=== PATIENT | female | born 1975 | race Caucasian/White ===

== ENCOUNTER 2018-12-23 20:15 | Inpatient (IN) ==
[2018-12-23] MEDS ORDERED: Sod Chloride 0.9% Inj 1,000 ML IV.SIG ONE (20:36)
[2018-12-23] MEDS ORDERED: Sod Chloride 0.9% Inj 1,000 ML IV.SIG SCH (20:45)
[2018-12-23] MEDS ORDERED: Morphine Inj 4 MG/ML Vial IV.PUSH ONE (21:49)
[2018-12-23 22:18] LABS: Baso # (Auto) 0.1 th/mm3 (0.0-0.2); Baso % (Auto) 0.4 % (0.0-2.0); Eos % (Auto) 0.1 % (0.0-4.0); Hematocrit 44.1 % (35.0-46.0); Hemoglobin 15.2 gm/dL (11.6-15.3); Lymph # (Auto) 2.7 th/mm3 (1.0-4.8); Lymph % (Auto) 19.2 % (9.0-44.0); Mean Corpuscular HGB Conc 34.4 % (32.0-36.0); Mean Corpuscular Hemoglobin 28.2 pg (27.0-34.0); Mean Corpuscular Volume 81.8 fL (80.0-100.0); Mean Platelet Volume 7.4 fL (7.0-11.0); Mono % (Auto) 6.9 % (0.0-8.0); Neut # (Auto) 10.5 th/mm3 (1.8-7.7); Neut % (Auto) 73.4 % (16.0-70.0); Platelet Count 451 th/mm3 (150-450); Red Blood Count 5.39 mil/mm3 (4.00-5.30); Red Cell Distribution Width 15.9 % (11.6-17.2); White Blood Count 14.3 th/mm3 (4.0-11.0)
[2018-12-24 02:11] LABS: Alanine Aminotransferase 125 U/L (10-53); Albumin 3.3 g/dL (3.4-5.0); Alkaline Phosphatase 136 U/L (45-117); Anion Gap 13 meq/L (5-15); Aspartate Aminotransferase 64 U/L (15-37); Blood Urea Nitrogen 18 mg/dL (7-18); Calcium 8.2 mg/dL (8.5-10.1); Carbon Dioxide 22.4 meq/L (21.0-32.0); Chloride 100 meq/L (98-107); Glomerular Filtration Rate 20 mL/min (>89); Glucose,Random 117 mg/dL (74-106); Lipase 84 U/L (73-393); Magnesium 1.2 mg/dL (1.5-2.5); Sodium 135 meq/L (136-145); Total Protein 6.9 g/dL (6.4-8.2)
[2018-12-24 02:16] LABS: Potassium 2.8 meq/L (3.5-5.1)
[2018-12-24] MEDS ORDERED: Potassium Chlor 20 mEq Premix 20 MEQ/100 ML PIGGYBACK IV.SIG ONE (02:28)
[2018-12-24] MEDS ORDERED: Mag Sulf 1 gm/100 ml Premix 100 ML IV.SIG ONE (02:29)
--- NOTE | 2018-12-24 03:35 | CT ---
EXAM DATE: 12/24/2018 3:12 AM EST AGE/SEX: 43 years / Female INDICATIONS: Abdomen pain. CLINICAL DATA: This is the patient's initial encounter. Patient reports that signs and symptoms have been present for 1 day and indicates a pain score of 6/10. MEDICAL/SURGICAL HISTORY: None. Appendectomy. Cholecystectomy. Colostomy. Colon resection RADIATION DOSE: 8.29 CTDI (mGy) COMPARISON: No prior exams available for comparison. TECHNIQUE: Multiple contiguous axial images were obtained through the abdomen. Images were obtained using multiple row detector helical technique. Using automated exposure control and adjustment of the mA and/or kV according to patient size, radiation dose was kept as low as reasonably achievable to o btain optimal diagnostic quality images. DICOM format image data is available electronically for rev iew and comparison. FINDINGS: Lung bases are clear. Small pericardial effusion. No acute findings in the liver, spleen, adrenals, left kidney or pancreas. Numerous small right renal calculi ranging in size from 1 to 4 mm, nonobstructing. Intrauterine device present. There is a 5.2 cm cystic-appearing mass in the midline pelvis above the uterus and bladder. Etiology unclear but this may represent an exophytic right ovarian cyst. There is a left lower quadrant ostomy. No parastomal hernia. No bowel obstruction, free air or free fluid. CONCLUSION: 1. 5.2 cm cyst in the central pelvis of unknown etiology, but possibly an exophytic ovarian cyst. In trauterine device present. Bladder unremarkable. 2. Trace pericardial fluid. 3. Numerous nonobstructing right renal calculi. Left lower quadrant ostomy. No bowel obstruction. Electronically signed by: Sergio Munoz MD Board Certified Radiologist 12/24/2018 3:34 AM EST
--- NOTE | 2018-12-24 03:59 | ED ---
HPI General Chief Complaint: Abdominal Pain Stated Complaint: Medical Time Seen by Provider: 12/23/18 20:36 Source: family Mode of arrival: ambulatory Limitations: no limitations History of Present Illness HPI narrative: 43-year-old female came to the emergency room brought in by family with history of vomiting. As per the she is unable to hold anything down over past 24 hours. Patient has had this issue multiple times in past 2 months. She has had complicated abdominal surgeries including wound dehiscence of colonic anastomosis rupture. Patient has a colostomy bag right now. She is complaining of abdominal pain as well. She appears to be weak and her is doing most of the history. Vital signs show the patient was tachycardic. Pain is all over her abdomen with no aggravating or relieving symptoms identified. Related Data Allergies Allergy/AdvReac Type Severity Reaction Status Date / Time diphenhydramine Allergy Hives Verified 12/23/18 20:21 [From Benadryl] penicillin G Allergy Anaphylaxis Verified 12/23/18 20:21 Review of Systems ROS: all other systems reviewed are negative [facility] Surgical History Surgical History History of abdominal surgery (Acute) History of appendectomy (Acute) History of cholecystectomy (Acute) History of colostomy (Acute) History of colostomy reversal (Acute) Social History Social History Substance History: No History of Abuse Second Hand Smoke Exposure: No Smoking Status: Former smoker Tobacco Type: Cigarettes How Often Do You Have a Drink Containing Alcohol: Never Recent Travel in [facility] within the Last 8 Weeks: Yes Recent Out of Country Travel within the Last 8 Weeks: No Immunization History Tetanus Immunization: Unsure Exam Narrative Exam Narrative: GENERAL: Awake, alert, appears to be weak and disheveled SKIN: Focused skin assessment warm/dry. HEAD: Atraumatic. Normocephalic. EYES: Pupils equal and round. No scleral icterus. No injection or drainage. ENT: No nasal bleeding or discharge. Mucous membranes pink and moist. NECK: Trachea midline. No JVD. CARDIOVASCULAR: Regular rate and rhythm. No murmur appreciated. RESPIRATORY: No accessory muscle use. Clear to auscultation. Breath sounds equal bilaterally. GASTROINTESTINAL: Abdomen soft, non-tender, nondistended. Hepatic and splenic margins not palpable. Patient has a large scar in the midline of her abdomen that is healing by secondary intention. There is a colostomy bag MUSCULOSKELETAL: No obvious deformities. No clubbing. No cyanosis. No edema. NEUROLOGICAL: Awake and alert. No obvious cranial nerve deficits. Motor grossly within normal limits. Normal speech. PSYCHIATRIC: Appropriate mood and affect; insight and judgment normal. Course Initial Documented Vital Signs Pulse Rate 152 H 12/23/18 20:21 Respiratory Rate 18 12/23/18 20:21 Pulse Oximetry 98 12/23/18 20:21 Last Documented Vital Signs Temperature 98.1 F 12/24/18 06:39 Pulse Rate 87 12/24/18 06:39 Respiratory Rate 16 12/24/18 06:39 Blood Pressure 108/66 12/24/18 06:39 Pulse Oximetry 100 12/24/18 06:39 Critical Care Time Critical Care Time: Yes Total Critical Care Time: 30 Attestation: Aggregate critical care time was 30 minutes. Time to perform other separately billable procedures was not included in the critical care time. My time did not include minutes spent treating any other patients simultaneously or on activities that did not directly contribute to the patient's treatment. The services I provided to this patient were to treat and/or prevent clinically significant deterioration that could result in: Dehydration, fluid resuscitation, IV potassium replace I provided critical care services requiring my management, as noted below: Chart data review, documentation time, medication orders and management, vital sign assessments/reviewing monitor data, ordering and reviewing lab tests, ordering and interpreting/reviewing x-rays and diagnostic studies, care of the patient and discussion of the patient with the admitting physicians. Medical Decision Making MDM Narrative Medical decision making narrative: 4:08 AM blood test results are back and patient has hypokalemia and elevated BUN and creatinine. I do not have an old blood test results on her to compare this. Her heart rate is in the 90s. I have given her IV and p.o. potassium replacement. CT scan did not show any acute abnormalities. Given few abnormal blood test results have decided to admit her. Patient has received 2 L of IV fluid bolus. Awaiting for the hospitalist to call back. Medical Screen Exam Complete: Yes Emergency Medical Condition: Yes Lab Data Result diagrams: 12/23/18 21:10 12/23/18 01:31 Lab Results 12/23/18 12/23/18 12/24/18 Range/Units 01:31 21:10 05:49 WBC 14.3 H (4.0-11.0) th/mm3 RBC 5.39 H (4.00-5.30) mil/mm3 Hgb 15.2 (11.6-15.3) gm/dL Hct 44.1 (35.0-46.0) % MCV 81.8 (80.0-100.0) fL MCH 28.2 (27.0-34.0) pg MCHC 34.4 (32.0-36.0) % RDW 15.9 (11.6-17.2) % Plt Count 451 H (150-450) th/mm3 MPV 7.4 (7.0-11.0) fL Neut % (Auto) 73.4 H (16.0-70.0) % Lymph % (Auto) 19.2 (9.0-44.0) % [place] % (Auto) 6.9 (0.0-8.0) % Eos % (Auto) 0.1 (0.0-4.0) % Baso % (Auto) 0.4 (0.0-2.0) % Neut # (Auto) 10.5 H (1.8-7.7) th/mm3 Lymph # (Auto) 2.7 (1.0-4.8) th/mm3 [place] # (Auto) 1.0 H (0.0-0.9) th/mm3 Eos # (Auto) 0.0 (0.0-0.4) th/mm3 Baso # (Auto) 0.1 (0.0-0.2) th/mm3 WBC Differential . Differential Comment Auto diff final Sodium 135 L (136-145) meq/L Potassium 2.8 L* (3.5-5.1) meq/L Chloride 100 (98-107) meq/L Carbon Dioxide 22.4 (21.0-32.0) meq/L Anion Gap 13 (5-15) meq/L BUN 18 (7-18) mg/dL Creatinine 2.61 H (0.50-1.00) mg/dL Estimated GFR 20 L (>89) mL/min Random Glucose 117 H (74-106) mg/dL Lactic Acid 1.2 (0.4-2.0) mmol/L Calcium 8.2 L (8.5-10.1) mg/dL Magnesium 1.2 L (1.5-2.5) mg/dL Total Bilirubin 0.6 (0.2-1.0) mg/dL AST 64 H (15-37) U/L ALT 125 H (10-53) U/L Alkaline Phosphatase 136 H (45-117) U/L Total Protein 6.9 (6.4-8.2) g/dL Albumin 3.3 L (3.4-5.0) g/dL Lipase 84 (73-393) U/L Imaging Data Radiologist's impression: Abdomen/Pelvis CT 12/24/18 02:29 CONCLUSION: 1. 5.2 cm cyst in the central pelvis of unknown etiology, but possibly an exophytic ovarian cyst. Intrauterine device present. Bladder unremarkable. 2. Trace pericardial fluid. 3. Numerous nonobstructing right renal calculi. Left lower quadrant ostomy. No bowel obstruction. ECG Data Attestation: I personally reviewed and interpreted this ECG as follows: Interpretation: Twelve-lead EKG was reviewed by me. Normal sinus rhythm, normal axis, tachycardia, nonspecific ST-T wave changes. Heart rate of 123 bpm Discharge Plan Discharge Disposition Patient Disposition: ED Admit(ED Internal Use Only) Discharge Order Discharge Orders: ED Use Only Admit Order (Routine); Ordered 12/24/18 Ordered By: Danielle Dunn Physicians Team ED Provider: Danielle Dunn Primary Care Provider: Primary Care Eveline Shaver Attending Provider: Quynh Henson Discharge Interventions Interventions: Vital Signs Last Done: 12/24/18 02:30 ED Discharge Assessment Last Done: 12/24/18 06:42 Status ED Status: Admitted Patient
[2018-12-24] MEDS ORDERED: Acetaminophen 325 MG Tablet PO PRN ×2 (04:16→04:45)
[2018-12-24] MEDS ORDERED: Bisacodyl 10 MG Supp RECTAL PRN ×2 (04:16→04:45)
[2018-12-24] MEDS ORDERED: Morphine Sulfate Inj 2 MG/ML Vial IV.PUSH PRN ×2 (04:16→04:44)
[2018-12-24] MEDS ORDERED: Sod Chloride 0.9% Inj 1,000 ML IV.CONT SCH ×2 (04:30→04:45)
--- NOTE | 2018-12-24 05:12 | P.HPIM ---
History of Present Illness Primary Care Physician: No Primary Care Physician History of Present Illness: This is a 43-year-old female with a PMH of Appendectomy w/ Perforation and Colonic Anastomosis Rupture s/p Colostomy who was brought to the ER by for persistent nausea and vomiting. Pt and here on vacation from [place], pt states she's had multiple abdominal surgeries w/ complications and has intermittent episodes of nausea/vomiting w/ dehydration requiring admission for fluids. Today w/ persistent nausea/vomiting , unable to take PO. Denies fever or chills. On arrival, BP 119/82, HR 94, O2 sat 100% on RA, Afebrile. WBC 14.3. K+ 2.8. Creatinine 2.61, no previous labs for comparison. Magnesium 1.2. AST 64, ALT 125, ALP 136. Lipase normal. CT Abdomen/Pelvis possibly ovarian cyst, no bowel obstruction, previous ostomy. Diagnosis (1) Intractable nausea and vomiting: (2) Hypomagnesemia: (3) Hypokalemia: (4) KAYLEE (acute kidney injury): Inpatient Certification Inpatient Certification: I certify that the inpatient services were ordered in accordance with Medicare regulations governing the order. This includes certification that hospital inpatient services are reasonable and necessary and in the case of services not specified as inpatient-only under 42 CFR 419.22(n), that they are appropriately provided as inpatient services in accordance to with the 2-midnight benchmark under 43 CFR 412.3(e) Estimated Total Length of Stay (Days): 2 Plans for Post Hospital Care: Not yet determined Review of Systems PAST FAMILY HISTORY: Reviewed. No h/o DM or CAD Review of Systems: all other systems reviewed are negative [facility] Surgical History Surgical History History of abdominal surgery (Acute) History of appendectomy (Acute) History of cholecystectomy (Acute) History of colostomy (Acute) History of colostomy reversal (Acute) Social History Social History Substance History: No History of Abuse Smoking Status: Former smoker Tobacco Type: Cigarettes How Often Do You Have a Drink Containing Alcohol: Never Recent Travel in [facility] within the Last 8 Weeks: No Recent Out of Country Travel within the Last 8 Weeks: No Immunization History Tetanus Immunization: Unsure Medications and Allergies Allergies Allergy/AdvReac Type Severity Reaction Status Date / Time diphenhydramine Allergy Hives Verified 12/23/18 20:21 [From Benadryl] penicillin G Allergy Anaphylaxis Verified 12/23/18 20:21 Active Medications: Active Medications Acetaminophen (Tylenol) 650 mg PO Q4H PRN PRN Reason: Temp > 100.4 Al Hydroxide/Mg Hydroxide (Milk Of Magnesia Liq) 30 ml PO Q12H PRN PRN Reason: Mild Constipation Bisacodyl (Dulcolax Supp) 10 mg RECTAL DAILY PRN PRN Reason: SEVERE CONSITIPATION Sodium Chloride (Ns Inj) 1,000 mls @ 100 mls/hr IV.CONT .Q10H JAELYN Lactulose (Lactulose Liq) 30 ml PO DAILY PRN PRN Reason: SEVERE CONSITIPATION Morphine Sulfate (Morphine Inj) 2 mg IV.PUSH Q4H PRN PRN Reason: PAIN SCALE 6 TO 10 Ondansetron HCl (Zofran Inj) 4 mg IV.PUSH Q6H PRN PRN Reason: NAUSEA OR VOMITING Senna/Docusate Sodium (Natalie-Colace) 1 tab PO BID JAELYN Sennosides (Senokot) 17.2 mg PO Q12H PRN PRN Reason: Moderate Constipation Sodium Chloride (Ns Flush) 2 ml IV.FLUSH PRN PRN PRN Reason: FLUSH AFTER USING IV ACCESS Sodium Chloride (Ns Flush) 2 ml IV.FLUSH BID JAELYN Sodium Chloride (Ns Flush) 2 ml IV.FLUSH PRN PRN PRN Reason: FLUSH AFTER USING IV ACCESS Physical Exam Vital signs: Vital Signs 12/23/18 20:21 12/23/18 22:29 12/23/18 23:30 Pulse Rate 152 H 94 H 92 H Respiratory Rate 18 18 18 Blood Pressure 119/82 112/66 Pulse Oximetry 98 100 100 12/24/18 00:30 12/24/18 02:30 Pulse Rate 92 H 92 H Respiratory Rate 18 18 Blood Pressure 108/73 108/73 Pulse Oximetry 100 100 Intake & Output 12/23/18 12/23/18 12/24/18 06:59 18:59 06:59 Intake Total 1999 Balance 1999 Weight 54.431 kg Intake: IV 1999 NS Inj 1,000 ML @ 1000 mls/hr 1999 IV.SIG BOLUS JAELYN Rx#:[id number] Narrative: PE: GENERAL: Middle-aged white female in no acute distress, appears significantly older than stated age. SKIN: Focused skin assessment warm and dry. HEENT: PERRLA, EOMI. No scleral icterus or conjunctival pallor. No lid lag or facial droop. CARDIOVASCULAR: Regular rate and rhythm. No obvious murmurs to auscultation. No chest tenderness to palpation. RESPIRATORY: No obvious rhonchi or wheezing. Clear to auscultation. Breath sounds equal bilaterally. GASTROINTESTINAL: Abdomen soft, non-tender, nondistended. BS normal. +abdominal wound from recent surgery, +colostomy. MUSCULOSKELETAL: Extremities without clubbing, cyanosis, or edema. No obvious deformities. NEUROLOGICAL: Awake, alert and oriented x4. No focal neurologic deficits. Moving both upper and lower extremities spontaneously. PSYCHIATRIC: Appropriate mood and affect. Insight and judgment normal. Results Labs CBC & Chem 7: 12/23/18 21:10 12/23/18 01:31 Imaging Impressions Abdomen/Pelvis CT 12/24/18 02:29 CONCLUSION: 1. 5.2 cm cyst in the central pelvis of unknown etiology, but possibly an exophytic ovarian cyst. Intrauterine device present. Bladder unremarkable. 2. Trace pericardial fluid. 3. Numerous nonobstructing right renal calculi. Left lower quadrant ostomy. No bowel obstruction. Caprini VTE Risk Assessment Caprini VTE Risk Assessment: No/Low Risk (score <= 1) Caprini Risk Assessment Model: Point Value = 1 Point Value = 2 Point Value = 3 Point Value = 5 Age 41-60 Minor surgery BMI > 25 kg/m2 Swollen legs Varicose veins or History of unexplained or recurrent spontaneous Oral contraceptives or hormone replacement Sepsis (< 1 month) Serious lung disease, including pneumonia (< 1 month) Abnormal pulmonary function Acute myocardial infarction Congestive heart failure (< 1 month) History of inflammatory bowel disease Medical patient at bed rest Age 61-74 Arthroscopic surgery Major open surgery (> 45 min) Laparoscopic surgery (> 45 min) Malignancy Confined to bed (> 72 hours) Immobilizing plaster cast Central venous access Age >= 75 History of VTE Family history of VTE Factor V Leiden Prothrombin [id number] Lupus anticoagulant Anticardiolipin antibodies Elevated serum homocysteine Heparin-induced thrombocytopenia Other congenital or acquired thrombophilia Stroke (< 1 month) Elective arthroplasty Hip, pelvis, or leg fracture Acute spinal cord injury (< 1 month) Prophylaxis Regimen: Total Risk Factor Score Risk Level Prophylaxis Regimen 0-1 Low Early ambulation 2 Moderate Order ONE of the following: *Sequential Compression Device (SCD) *Heparin 5000 units SQ BID 3-4 Higher Order ONE of the following medications: *Heparin 5000 units SQ TID *Enoxaparin/Lovenox 40 mg SQ daily (WT < 150 kg, CrCl > 30 mL/min) *Enoxaparin/Lovenox 30 mg SQ daily (WT < 150 kg, CrCl > 10-29 mL/min) *Enoxaparin/Lovenox 30 mg SQ BID (WT < 150 kg, CrCl > 30 mL/min) AND/OR *Sequential Compression Device (SCD) 5 or more Highest Order ONE of the following medications: *Heparin 5000 units SQ TID (Preferred with Epidurals) *Enoxaparin/Lovenox 40 mg SQ daily (WT < 150 kg, CrCl > 30 mL/min) *Enoxaparin/Lovenox 30 mg SQ daily (WT < 150 kg, CrCl > 10-29 mL/min) *Enoxaparin/Lovenox 30 mg SQ BID (WT < 150 kg, CrCl > 30 mL/min) AND *Sequential Compression Device (SCD) Assessment and Plan (1) Intractable nausea and vomiting: Code(s): R11.2 - Nausea with vomiting, unspecified Status: Acute (2) Hypomagnesemia: Code(s): E83.42 - Hypomagnesemia Status: Acute (3) Hypokalemia: Code(s): E87.6 - Hypokalemia Status: Acute (4) KAYLEE (acute kidney injury): Code(s): N17.9 - Acute kidney failure, unspecified Status: Acute Plan A/P: 1. KAYLEE: Creatinine 2.61, no previous labs for comparison, presumably new, likely secondary to dehydration from decreased PO intake, IVF for hydration, monitor I/O, check U/a to eval for UTI, repeat labs in am. 2. Hypokalemia: K+ 2.8, s/p replacement, will recheck, give additional replacement as needed. 3. Hypomagnesemia: Mg 1.2, s/p replacement, recheck and replace as needed. 4. Intractable NV: h/o multiple abdominal surgeries w/ perforation/wound dehiscence, s/p colostomy, CT Abd/Pelvis w/ no acute findings, no obstruction, Wound Consult for ochoa, continue analgesics/antiemetics, LFTs mildly elevated, no previous labs for comparison, check Gallbladder US 5. DVT Prophylaxis: SCD/teds. 6. Social work for DC planning as needed. 7. Case discussed at length with the ER physician, labs/records/imaging reviewed by me.
[2018-12-24] MEDS ORDERED: Senna/Docusate Sodium 8.6/50 MG Tablet PO SCH ×2 (09:00)
[2018-12-24 13:20] VITALS: BP 92/54; PULSE 89; RESP 14; TEMP 98.2; O2SAT 98
--- NOTE | 2018-12-24 15:47 | P.PNADD ---
Addendum to Inpatient Note Reason for Addendum: Additional Documentation Additional information: Patient adamant that her nausea/vomiting resolved yesterday upon admission. Patient was tolerating clears this AM, and requests regular diet. Patient also reports that she declines the ultrasound of the gallbladder as she does not have a gallbladder. Patient adamant that she wants to be discharged. Patient advised we will get stat CMP and magnesium to assess for creatinine, magnesium, and potassium. Patient advised that she can only be discharged this afternoon if labs within normal limits otherwise consider discharge in a.m. Patient reports she has an EGD scheduled in [place] in 2 weeks, reports N/V is a chronic concern for her.
--- NOTE | 2018-12-25 00:42 | ECG ---
Date Performed: 12/23/2018 Time Performed: 20:43:27 PTAGE: 43 years EKG: SINUS TACHYCARDIA WITH SHORT [place] INTERVAL MINIMAL ST DEPRESSION ABNORMAL RHYTHM ECG NO PREVIOUS TRACING DOCTOR: Minor Lindsey Interpretating Date/Time 12/25/2018 00:41:03
== END 2018-12-24 16:39 | disposition left against medical advice (07) | DRG 684 ==
LOC: NEPE 20:15 → NEDA 12-24 04:16 → N04 12-24 06:27
PROVIDERS: ADMIT Family Medicine; ATTEND Family Medicine
DX: R00.0 Tachycardia, unspecified; E87.6 Hypokalemia; E83.42 Hypomagnesemia; N17.9 Acute kidney failure, unspecified; R11.2 Nausea with vomiting, unspecified; E86.0 Dehydration; Z90.49 Acquired absence of other specified parts of digestive tract; Z93.3 Colostomy status; Z87.891 Personal history of nicotine dependence
CPT/HCPCS: 74176; 80053; 83605; 83690; 83735; 85025; 90761; 90774; 90775; 90776; 90784; 93005; 96361; 96374; 96375; 96376; 99291; C8952; J2270; J2405; J3475; J3480; J7030